=== PATIENT | female | born 1980 | race Caucasian/White ===

== ENCOUNTER 2019-12-23 21:19 | Emergency (ER) | payer BC, OTHER ==
[2019-12-23] MEDS ORDERED: Diphtheria,Pertussis(Acell),Tetanus Vaccine 0.5 ML Syringe IM ONE (21:29)
[2019-12-23] MEDS ORDERED: Take Home: Cephalexin 500 MG Cap, 4 Cap Pack PO ONE (21:30)
--- NOTE | 2019-12-23 21:55 | EDM.PDOC ---
ED HPI GENERAL MEDICAL PROBLEM - General Chief Complaint: Upper Extremity Injury/Pain Stated Complaint: FISH HOOK IN LEFT HAND Time Seen by Provider: 12/23/19 21:23 Source of Information: Reports: Patient History Limitations: Reports: No Limitations - History of Present Illness INITIAL COMMENTS - FREE TEXT/NARRATIVE: Patient comes in emergency department with complaint of a hook in her left hand 2nd finger. Patient states that she was out fishing and ended up getting a hook on her finger. She did try to take out prior to arrival however it would not come out. Patient also states that she is not up-to-date with her tetanus her last tetanus shot was approximately 10 years ago. Patient states that she is got no numbness or tingling with the fishhook in her finger. She states she is got normal range of motion. Patient denies any fever nausea vomiting. She states that it was minimal bleeding and did not need to control it with manual pressure for it stopped on its own. Patient denies any other recent injuries or illnesses. Onset: Sudden Location: Reports: Upper Extremity, Left Quality: Reports: Throbbing Severity: Moderate Improves with: Reports: Immobilization Worsens with: Reports: Movement Associated Symptoms: Reports: No Other Symptoms - Related Data Home Meds: Home Meds cephALEXin [Keflex] 500 mg PO BID 5 Days #10 cap 12/23/19 [Rx] Review of Systems - Review of Systems Review Of Systems: Comprehensive ROS is negative, except as noted in HPI. Constitutional: Reports: No Symptoms Eyes: Reports: No Symptoms Mouth/Throat: Reports: No Symptoms Respiratory: Reports: No Symptoms Cardiovascular: Reports: No Symptoms GI/Abdominal: Reports: No Symptoms Musculoskeletal: Reports: No Symptoms Neurological: Reports: No Symptoms Psychiatric: Reports: No Symptoms ED EXAM, GENERAL - Physical Exam Exam: See Below Exam Limited By: No Limitations General Appearance: Alert, WD/WN, No Apparent Distress Respiratory/Chest: No Respiratory Distress, No Accessory Muscle Use, Chest Non- Tender Cardiovascular: Normal Peripheral Pulses, Regular Rate, Rhythm, No Edema Extremities: Normal Range of Motion, No Pedal Edema, Normal Capillary Refill, Other (left hand 2nd finger ) Neurological: Alert, Oriented, Normal Gait Psychiatric: Normal Affect, Normal Mood ED TRAUMA EXTREMITY PROCEDURES - Laceration/Wound Repair Left Digit - 3rd (Middle) Lac/Wound Length In cm: 0 Appearance: Other (fish hook in tip of finger ) Distal NVT: Neuro & Vascular Intact, No Tendon Injury Anesthetic Type: Local Local Anesthesia - Lidocaine (Xylocaine): 1% Plain Skin Prep: Chlorhexidine (Hibiciens) Tetanus Status Addressed: Yes Complications: No Course - Orders/Labs/Meds Orders: Active Orders 24 hr Category Date Time Status Vaccines to be Administered [RC] PER UNIT ROUTINE Care 12/23/19 21:29 Active Meds: Medications Discontinued Medications Generic Name Dose Route Start Last Admin Trade Name Jayant PRN Reason Stop Dose Admin Cephalexin 1 packet 12/23/19 21:30 12/23/19 21:58 Take Home: Cephalexin 500 Mg, 4 Cap Pack PO 12/23/19 21:31 1 packet ONETIME ONE Administration Diphtheria/Tetanus/Acell Pertussis 0.5 ml 12/23/19 21:29 12/23/19 21:43 Adacel IM 12/23/19 21:30 0.5 ml .ONCE ONE Administration Lidocaine HCl 5 ml 12/23/19 21:29 12/23/19 21:45 Xylocaine-Mpf 1% INJECT 12/23/19 21:30 5 ml ONETIME ONE Administration Departure - Departure Time of Disposition: 22:05 Disposition: Home, Self-Care 01 Condition: Good Clinical Impression: Fish hook injury of left middle finger Qualifiers: Encounter type: initial encounter Qualified Code(s): S69.92XA - Unspecified injury of left wrist, hand and finger(s), initial encounter - Discharge Information *PRESCRIPTION DRUG MONITORING PROGRAM REVIEWED*: Not Applicable *COPY OF PRESCRIPTION DRUG MONITORING REPORT IN PATIENT [place]TT[place]: Not Applicable Prescriptions: cephALEXin [Keflex] 500 mg PO BID 5 Days #10 cap Instructions: Puncture Wound, Cephalexin tablets or capsules, Probiotics Forms: ED Department Discharge Additional Instructions: 1. Rest 2. Keep the area clean and dry 3. Can use Tylenol and ibuprofen as needed for pain and discomfort 4. Diet as tolerated 5. Activity as tolerated 6. Elevated the injured area above the level of the heart to decrease swelling and discomfort if applicable 7. Can use ice 3-4 times a day at 20-minute intervals to help with any swelling and discomfort 8. Follow-up with your primary care provider symptoms continue or to progress 9. Discharge information has been provided regarding your injury and wound care has been provided 10. Avoid an public pools or hot tubes until wound is healed. 11.take antibiotic to prevent infection 12. Take a probiotic while taking an antibiotic to hep promote healthy GI motility - My Orders Last 24 Hours: My Active Orders 12/23/19 21:29 Vaccines to be Administered [RC] PER UNIT ROUTINE - Assessment/Plan Last 24 Hours: My Active Orders 12/23/19 21:29 Vaccines to be Administered [RC] PER UNIT ROUTINE Assessment:: 1. fish hook in finger Plan: 1. Wound cleansing completed 2. Fish hook removal completed 3. Tdap vaccine history completed 4. Education regarding wound care, dressing changes, OTC medications, activity, diet, follow up care and when to seek care if warranted provided 5. Patient is to return to the clinic in 10 days to have sutures site evaluated and removed 6. Patient was encouraged to call or return if any questions or concerns arise.
== END 2019-12-23 22:09 | disposition home or self-care (01) ==
LOC: VM.ED 21:19
DX: S60.453A Superficial foreign body of left middle finger, initial encounter (principal); Z23 Encounter for immunization; W45.8XXA Other foreign body or object entering through skin, initial encounter
CPT/HCPCS: 90471; 90715; 99283; A9270; J2001